=== PATIENT | male | born 1945 | race Caucasian/White ===

== ENCOUNTER → 2023-01-29 10:31 | Outpatient (CLI) | payer MEDICARE, OTHER, SELFPAY ==
[2023-01-29 18:59] LABS: Add Manual Diff / Slide Review NO; Basophils Absolute Auto 0 /uL (0-100); Basophils Percent Auto 0.7 % (0-2); Eosinophils Absolute Auto 0 /uL (0-450); Hematocrit 42.4 % (41-53); Hemoglobin 14.4 g/dL (13.5-17.5); Lymphocytes Absolute Auto 900 /uL (1100-4500); Lymphocytes Percent Auto 20.8 % (25-40); Mean Corpuscular Hemoglobin 32.8 PG (26-34); Mean Corpuscular Volume 96.6 fL (80-100); Monocytes Absolute Auto 400 /uL (0-900); Monocytes Percent Auto 8.6 % (3-14); Neutrophils Absolute Auto 3100 /uL (1500-7000); Neutrophils Percent Auto 68.9 % (50-75); Platelet Count 157 X10^3/uL (150-400); Red Blood Cell Count 4.39 X10^6/uL (4.5-5.9); Red Cell Distribution Width 13.4 % (11.6-14.8); White Blood Cell Count 4.5 X10^3/uL (4.5-11.0)
[2023-01-29 19:11] LABS: BUN Creatinine Ratio 15.9 (6-22); Blood Urea Nitrogen 14 mg/dL (9-20); Calcium 9.7 mg/dL (8.4-10.2); Carbon Dioxide 31 mmol/L (22-32); Chloride 100 mmol/L (98-107); Cholesterol 266 mg/dL (140-199); Estimated Glomerular Filt Rate > 60 mL/min (>60); Glucose 98 mg/dL (80-110); HDL Cholesterol 67 mg/dL (40-60); HEMOLYSIS < 15 (0-50); LDL Cholesterol Calculated 174 mg/dL (<100); Potassium 4.6 mmol/L (3.4-5.1); Sodium 140 mmol/L (137-145); Triglycerides 123 mg/dL (35-150); Uric Acid 8.4 mg/dL (3.5-8.5)
[2023-01-29 19:39] LABS: Prostate Specific Antigen Scrn 0.918 ng/mL (0.1-4.0)
[2023-02-01 23:25] LABS: CCP Antibodies IgG/IgA 2 units (0-19)
[2023-02-02 18:59] LABS: ANA Screen, IFA Negative (.)
== END ==
PROVIDERS: PCP Family Medicine; Visit Provider Family Medicine
DX: Z13.6 Encounter for screening for cardiovascular disorders (principal); Z12.5 Encounter for screening for malignant neoplasm of prostate; Z87.39 Personal history of other diseases of the musculoskeletal system and connective tissue; Z13.1 Encounter for screening for diabetes mellitus; Z13.220 Encounter for screening for lipoid disorders
CPT/HCPCS: 80048; 80061; 84550; 85025; 86038; 86200; G0103

== ENCOUNTER → 2023-04-04 11:48 | Outpatient (CLI) | payer MEDICARE, OTHER, SELFPAY ==
[2023-04-04 19:56] LABS: Uric Acid 5.1 mg/dL (3.5-8.5)
[2023-04-04 20:00] LABS: Add Manual Diff / Slide Review NO; Basophils Absolute Auto 0 /uL (0-100); Basophils Percent Auto 0.3 % (0-2); Eosinophils Absolute Auto 0 /uL (0-450); Eosinophils Percent Auto 0.6 % (2-4); Hematocrit 39.5 % (41-53); Hemoglobin 13.7 g/dL (13.5-17.5); Lymphocytes Absolute Auto 1200 /uL (1100-4500); Lymphocytes Percent Auto 21.5 % (25-40); Mean Corpuscular HGB Conc 34.6 % (30-36); Mean Corpuscular Hemoglobin 33.4 PG (26-34); Mean Corpuscular Volume 96.5 fL (80-100); Monocytes Absolute Auto 400 /uL (0-900); Monocytes Percent Auto 7.8 % (3-14); Neutrophils Absolute Auto 3800 /uL (1500-7000); Neutrophils Percent Auto 69.8 % (50-75); Platelet Count 168 X10^3/uL (150-400); Red Blood Cell Count 4.09 X10^6/uL (4.5-5.9); Red Cell Distribution Width 13.9 % (11.6-14.8); White Blood Cell Count 5.4 X10^3/uL (4.5-11.0)
== END ==
PROVIDERS: PCP Family Medicine; Visit Provider Family Medicine
DX: Z87.39 Personal history of other diseases of the musculoskeletal system and connective tissue (principal); D72.810 Lymphocytopenia; E78.2 Mixed hyperlipidemia
CPT/HCPCS: 84550; 85025

== ENCOUNTER → 2023-04-19 12:12 | Outpatient (CLI) | payer MEDICARE, OTHER, SELFPAY ==
[2023-04-24 17:59] LABS: Fecal Immunochemical Test Negative (Negative)
== END ==
PROVIDERS: PCP Family Medicine; Visit Provider Family Medicine
DX: D64.9 Anemia, unspecified (principal); D72.810 Lymphocytopenia
CPT/HCPCS: 82274

== ENCOUNTER → 2023-04-25 11:27 | Outpatient (CLI) | payer MEDICARE, OTHER, SELFPAY ==
[2023-04-25 19:54] LABS: HEMOLYSIS < 15 (0-50); Iron 110 ug/dL (49-181)
[2023-04-25 19:57] LABS: Add Manual Diff / Slide Review NO; Basophils Absolute Auto 0 /uL (0-100); Basophils Percent Auto 0.6 % (0-2); Eosinophils Absolute Auto 0 /uL (0-450); Eosinophils Percent Auto 0.8 % (2-4); Hematocrit 38.4 % (41-53); Hemoglobin 13.1 g/dL (13.5-17.5); Lymphocytes Absolute Auto 1100 /uL (1100-4500); Lymphocytes Percent Auto 20.9 % (25-40); Mean Corpuscular HGB Conc 34.1 % (30-36); Mean Corpuscular Hemoglobin 32.8 PG (26-34); Mean Corpuscular Volume 96.2 fL (80-100); Monocytes Absolute Auto 500 /uL (0-900); Monocytes Percent Auto 8.9 % (3-14); Neutrophils Absolute Auto 3500 /uL (1500-7000); Neutrophils Percent Auto 68.8 % (50-75); Platelet Count 176 X10^3/uL (150-400); Red Blood Cell Count 3.99 X10^6/uL (4.5-5.9); Red Cell Distribution Width 14.1 % (11.6-14.8); White Blood Cell Count 5.1 X10^3/uL (4.5-11.0)
[2023-04-25 20:05] LABS: Percent Iron Saturation 46 % (20-50); Total Iron Binding Capacity 241 ug/dL (261-462); Transferrin 176 mg/dL (206-381)
[2023-04-25 20:27] LABS: Thyroid Stimulating Hormone 1.03 uIU/mL (0.47-4.68)
[2023-04-25 20:44] LABS: Vitamin B12 489 pg/mL (239-931)
== END ==
PROVIDERS: PCP Family Medicine; Visit Provider Family Medicine
DX: Z87.39 Personal history of other diseases of the musculoskeletal system and connective tissue (principal); E78.2 Mixed hyperlipidemia; D64.9 Anemia, unspecified; D72.810 Lymphocytopenia
CPT/HCPCS: 82607; 83540; 83550; 84443; 85025

== ENCOUNTER → 2023-06-05 13:16 | Outpatient (CLI) | payer MEDICARE, OTHER, SELFPAY ==
[2023-06-07 19:50] LABS: Fecal Immunochemical Test Negative (Negative)
== END ==
PROVIDERS: PCP Family Medicine; Visit Provider Family Medicine
DX: D64.9 Anemia, unspecified (principal)
CPT/HCPCS: 82274

== ENCOUNTER → 2023-06-11 10:57 | Outpatient (CLI) | payer MEDICARE, OTHER, SELFPAY ==
[2023-06-11 19:50] LABS: HEMOLYSIS < 15 (0-50); Iron 139 ug/dL (49-181)
[2023-06-11 19:55] LABS: Uric Acid 4.6 mg/dL (3.5-8.5)
[2023-06-11 20:04] LABS: Percent Iron Saturation 60 % (20-50); Total Iron Binding Capacity 230 ug/dL (261-462); Transferrin 155 mg/dL (206-381)
[2023-06-11 20:50] LABS: Vitamin B12 520 pg/mL (239-931)
== END ==
PROVIDERS: PCP Family Medicine; Visit Provider Family Medicine
DX: Z87.39 Personal history of other diseases of the musculoskeletal system and connective tissue (principal); D64.9 Anemia, unspecified; D72.810 Lymphocytopenia
CPT/HCPCS: 82607; 83540; 83550; 84550

== ENCOUNTER → 2023-08-28 11:57 | Outpatient (CLI) | payer MEDICARE, OTHER, SELFPAY ==
[2023-08-28 19:04] LABS: Reticulocyte Count, Percent 1.4 % (0.9-2.6)
[2023-08-28 19:13] LABS: Add Manual Diff / Slide Review NO; Basophils Absolute Auto 0 /uL (0-100); Basophils Percent Auto 0.3 % (0-2); Eosinophils Absolute Auto 0 /uL (0-450); Eosinophils Percent Auto 0.5 % (2-4); Hematocrit 39.5 % (41-53); Hemoglobin 13.7 g/dL (13.5-17.5); Lymphocytes Absolute Auto 900 /uL (1100-4500); Lymphocytes Percent Auto 10.8 % (25-40); Mean Corpuscular HGB Conc 34.7 % (30-36); Mean Corpuscular Hemoglobin 33.6 PG (26-34); Mean Corpuscular Volume 96.8 fL (80-100); Monocytes Absolute Auto 500 /uL (0-900); Monocytes Percent Auto 5.8 % (3-14); Neutrophils Absolute Auto 6800 /uL (1500-7000); Neutrophils Percent Auto 82.6 % (50-75); Platelet Count 172 X10^3/uL (150-400); Red Blood Cell Count 4.08 X10^6/uL (4.5-5.9); Red Cell Distribution Width 14.3 % (11.6-14.8); White Blood Cell Count 8.3 X10^3/uL (4.5-11.0)
== END ==
PROVIDERS: PCP Family Medicine; Visit Provider Family Medicine
DX: Z87.39 Personal history of other diseases of the musculoskeletal system and connective tissue (principal); D64.9 Anemia, unspecified
CPT/HCPCS: 85025; 85045

== ENCOUNTER → 2024-05-05 08:00 | Outpatient (CLI) | payer MEDICARE, OTHER, SELFPAY ==
[2024-05-07 09:13] LABS: Fecal Immunochemical Test Negative (Negative)
== END ==
PROVIDERS: PCP Family Medicine; Referring Provider Family Medicine; Visit Provider Family Medicine
DX: D64.9 Anemia, unspecified (principal)
CPT/HCPCS: 82274

== ENCOUNTER → 2024-05-06 08:31 | Outpatient (CLI) | payer MEDICARE, OTHER, SELFPAY ==
[2024-05-06 19:14] LABS: Add Manual Diff / Slide Review NO; Basophils Absolute Auto 0 /uL (0-100); Basophils Percent Auto 0.3 % (0-2); Eosinophils Absolute Auto 100 /uL (0-450); Eosinophils Percent Auto 1.1 % (2-4); Hematocrit 40.1 % (41-53); Hemoglobin 13.7 g/dL (13.5-17.5); Lymphocytes Absolute Auto 1200 /uL (1100-4500); Lymphocytes Percent Auto 25.1 % (25-40); Mean Corpuscular HGB Conc 34.2 % (30-36); Mean Corpuscular Hemoglobin 34.3 PG (26-34); Mean Corpuscular Volume 100.4 fL (80-100); Monocytes Absolute Auto 400 /uL (0-900); Monocytes Percent Auto 8.8 % (3-14); Neutrophils Absolute Auto 3100 /uL (1500-7000); Neutrophils Percent Auto 64.7 % (50-75); Platelet Count 161 X10^3/uL (150-400); Red Cell Distribution Width 13.8 % (11.6-14.8); White Blood Cell Count 4.8 X10^3/uL (4.5-11.0)
[2024-05-06 19:16] LABS: HEMOLYSIS 20 (0-50); Iron 118 ug/dL (49-181)
[2024-05-06 19:28] LABS: BUN Creatinine Ratio 22.7 (6-22); Blood Urea Nitrogen 20 mg/dL (9-20); Calcium 9.4 mg/dL (8.4-10.2); Carbon Dioxide 29 mmol/L (22-32); Chloride 102 mmol/L (98-107); Cholesterol 239 mg/dL (140-199); Estimated Glomerular Filt Rate > 60 mL/min (>60); Glucose 103 mg/dL (80-110); HDL Cholesterol 68 mg/dL (40-60); HEMOLYSIS < 15 (0-50); LDL Cholesterol Calculated 153 mg/dL (<100); Potassium 4.4 mmol/L (3.4-5.1); Sodium 137 mmol/L (137-145); Triglycerides 90 mg/dL (35-150); Uric Acid 4.6 mg/dL (3.5-8.5)
[2024-05-06 19:31] LABS: Percent Iron Saturation 56 % (20-50); Total Iron Binding Capacity 211 ug/dL (261-462); Transferrin 175 mg/dL (206-381)
[2024-05-06 20:31] LABS: Vitamin B12 616 pg/mL (239-931)
== END ==
PROVIDERS: PCP Family Medicine; Referring Provider Family Medicine; Visit Provider Family Medicine
DX: D64.9 Anemia, unspecified (principal); I10 Essential (primary) hypertension; D72.810 Lymphocytopenia; E78.2 Mixed hyperlipidemia; Z87.39 Personal history of other diseases of the musculoskeletal system and connective tissue
CPT/HCPCS: 80048; 80061; 82607; 83540; 83550; 84550; 85025

== ENCOUNTER → 2025-03-06 09:15 | Outpatient (CLI) | payer MEDICARE, OTHER, SELFPAY ==
[2025-03-06 18:44] LABS: Add Manual Diff / Slide Review NO; Basophils Absolute Auto 0 /uL (0-100); Basophils Percent Auto 0.4 % (0-2); Eosinophils Absolute Auto 0 /uL (0-450); Eosinophils Percent Auto 0.5 % (2-4); Hematocrit 40.9 % (41-53); Hemoglobin 13.8 g/dL (13.5-17.5); Lymphocytes Absolute Auto 1000 /uL (1100-4500); Lymphocytes Percent Auto 16.8 % (25-40); Mean Corpuscular HGB Conc 33.8 % (30-36); Mean Corpuscular Hemoglobin 32.7 PG (26-34); Mean Corpuscular Volume 96.7 fL (80-100); Monocytes Absolute Auto 400 /uL (0-900); Monocytes Percent Auto 6.6 % (3-14); Neutrophils Absolute Auto 4300 /uL (1500-7000); Neutrophils Percent Auto 75.7 % (50-75); Platelet Count 165 X10^3/uL (150-400); Red Blood Cell Count 4.22 X10^6/uL (4.5-5.9); Red Cell Distribution Width 15.5 % (11.6-14.8); White Blood Cell Count 5.7 X10^3/uL (4.5-11.0)
[2025-03-06 19:07] LABS: BUN Creatinine Ratio 15.1 (6-22); Blood Urea Nitrogen 13 mg/dL (9-20); Calcium 9.7 mg/dL (8.4-10.2); Carbon Dioxide 29 mmol/L (22-32); Chloride 102 mmol/L (98-107); Cholesterol 262 mg/dL (140-199); Estimated Glomerular Filt Rate > 60 mL/min (>60); Glucose 103 mg/dL (80-110); HDL Cholesterol 78 mg/dL (40-60); HEMOLYSIS < 15 (0-50); LDL Cholesterol Calculated 160 mg/dL (<100); Potassium 4.4 mmol/L (3.4-5.1); Sodium 138 mmol/L (137-145); Triglycerides 120 mg/dL (35-150)
[2025-03-06 19:32] LABS: Prostate Specific Antigen Scrn 0.959 ng/mL (0.1-4.0)
== END ==
PROVIDERS: PCP Family Medicine; Visit Provider Family Medicine
DX: Z12.5 Encounter for screening for malignant neoplasm of prostate (principal); D64.9 Anemia, unspecified; E78.2 Mixed hyperlipidemia; I10 Essential (primary) hypertension; D72.810 Lymphocytopenia
CPT/HCPCS: 80048; 80061; 85025; G0103

== ENCOUNTER → 2025-09-23 09:58 | Outpatient (CLI) | payer MEDICARE, OTHER, SELFPAY ==
[2025-09-23 18:52] LABS: Add Manual Diff / Slide Review NO; Hematocrit 38.2 % (41-53); Hemoglobin 12.8 g/dL (13.5-17.5); Lymphocytes Absolute Auto 1000 /uL (1100-4500); Mean Corpuscular HGB Conc 33.4 % (30-36); Mean Corpuscular Hemoglobin 32.2 PG (26-34); Mean Corpuscular Volume 96.3 fL (80-100); Platelet Count 248 X10^3/uL (150-400)
[2025-09-23 19:07] LABS: Blood Urea Nitrogen 19 mg/dL (9-20); Calcium 9.7 mg/dL (8.4-10.2); Carbon Dioxide 29 mmol/L (22-32); Chloride 103 mmol/L (98-107); Cholesterol 147 mg/dL (140-199); Estimated Glomerular Filt Rate > 60 mL/min (>60); Glucose 97 mg/dL (70-99); HDL Cholesterol 49 mg/dL (40-60); HEMOLYSIS 18 (0-50); Potassium 4.4 mmol/L (3.4-5.1); Sodium 140 mmol/L (137-145); Triglycerides 77 mg/dL (35-150)
[2025-09-23 19:35] LABS: TSH w/ Reflex to FT4 1.11 uIU/mL (0.47-4.68)
[2025-10-02 08:11] LABS: HLA B27 Negative (.)
== END ==
PROVIDERS: PCP Family Medicine; Visit Provider Family Medicine
DX: D64.9 Anemia, unspecified (principal); I25.2 Old myocardial infarction; I35.8 Other nonrheumatic aortic valve disorders; I10 Essential (primary) hypertension; E78.2 Mixed hyperlipidemia; Z95.1 Presence of aortocoronary bypass graft; H20.00 Unspecified acute and subacute iridocyclitis
CPT/HCPCS: 80048; 80061; 81374; 84443; 85025